=== PATIENT | male | born 1960 | race Two or more races ===

== ENCOUNTER 2021-08-08 20:45 | Emergency (ER) | payer OTHER ==
[~2021-08-08] VITALS: Ht 167.6 cm; Wt 85.3 kg
[2021-08-08] MEDS ORDERED: ACETAMINOPHEN 325 MG TAB PO ONE (21:45)
[2021-08-08] MEDS ORDERED: ONDANSETRON HCL 4 MG ORAL DISINTEGRATING TAB PO ONE (21:45)
[2021-08-08] MEDS ORDERED: PREDNISONE 20 MG TAB PO ONE (21:45)
[2021-08-08] MEDS ORDERED: KETOROLAC TROMETHAMINE 30 MG/ML VIAL IM ONE (21:45)
[2021-08-08] MEDS ORDERED: IBUPROFEN IB200 MG PO (21:49)
[2021-08-08] MEDS ORDERED: PREDNISONE20 MG PO (21:49)
[2021-08-08] MEDS ORDERED: ACETAMINOPHEN500 MG PO (21:49)
[2021-08-08] MEDS ORDERED: KETOROLAC TROMETHAMINE 60 MG/2 ML VIAL ONE (22:16)
[2021-08-08] MEDS ORDERED: ONDANSETRON HCL 4 MG ORAL DISINTEGRATING TAB ONE (22:23)
[2021-08-08] MEDS ORDERED: PREDNISONE 20 MG TAB ONE (22:23)
[2021-08-08] MEDS ORDERED: ACETAMINOPHEN 325 MG TAB ONE (22:23)
== END 2021-08-08 23:10 | disposition home or self-care (01) ==
LOC: FSED 20:56
DX: M54.50 Low back pain, unspecified (principal); M47.897 Other spondylosis, lumbosacral region; I10 Essential (primary) hypertension
CPT/HCPCS: 72100; 99283; J1885; J7512; Q0162